=== PATIENT | female | born 1950 | race Caucasian/White ===

== ENCOUNTER 2019-07-24 15:14 | Outpatient (CLI) | payer MEDICARE | END 2019-07-24 15:19 | LOC: LAB 15:14 | PROVIDERS: ATTEND Internal Medicine Geriatric Medicine | DX: F41.9 Anxiety disorder, unspecified (principal); F39 Unspecified mood [affective] disorder; F10.20 Alcohol dependence, uncomplicated; K21.9 Gastro-esophageal reflux disease without esophagitis; Y90.9 Presence of alcohol in blood, level not specified | CPT/HCPCS: 36415; G0480; 80320 ==

== ENCOUNTER 2019-09-02 15:02 | Outpatient (CLI) | payer MEDICARE | END 2019-09-02 15:07 | LOC: LAB 15:02 | PROVIDERS: ATTEND Internal Medicine Geriatric Medicine | DX: F41.9 Anxiety disorder, unspecified (principal); K21.9 Gastro-esophageal reflux disease without esophagitis; F10.20 Alcohol dependence, uncomplicated; Y90.9 Presence of alcohol in blood, level not specified | CPT/HCPCS: 36415; G0480; 80320 ==